=== PATIENT | male | born 1940 | race Caucasian/White ===

== ENCOUNTER 2024-07-30 10:10 | Emergency (ER) | payer MEDICARE, OTHER ==
[2024-07-30 11:47] LABS: HEMATOCRIT 38.9 % (39.0-49.0); HEMOGLOBIN 13.3 g/dL (13.1-16.8); MEAN CORPUSCULAR HEMOGLOBIN 31.4 pg (28.2-33.3); MEAN CORPUSCULAR HGB CONC 34.2 g/dL (31.7-36.0); MEAN CORPUSCULAR VOLUME 91.7 fL (84.0-98.0); RED BLOOD CELL COUNT 4.24 M/uL (4.33-5.41); WHITE BLOOD CELL COUNT,WBC 6.3 K/uL (4.0-10.2)
[2024-07-30 11:48] LABS: BASOPHILS ABSOLUTE AUTO 0.01 K/uL (0.00-0.20); BASOPHILS PERCENT AUTO 0.2 % (0.0-2.0); EOSINOPHILS ABSOLUTE AUTO 0.21 K/uL (0.00-0.50); EOSINOPHILS PERCENT AUTO 3.3 % (0.0-5.0); LYMPHOCYTES PERCENT AUTO 15.8 % (10.0-50.0); MONOCYTES ABSOLUTE AUTO 1.21 K/uL (0.00-1.00); MONOCYTES PERCENT AUTO 19.1 % (2.0-14.0); NEUTROPHILS PERCENT AUTO 61.6 % (45.0-80.0); PLATELET COUNT,PLT 167 K/uL (150-350); RED CELL DISTRIBUTION WIDTH 13.7 % (11.2-14.1)
[2024-07-30 11:59] LABS: LACTIC ACID 0.9 mmol/L (0.4-2.0)
[2024-07-30 12:03] LABS: ALBUMIN 3.4 g/dL (3.4-5.0); ANION GAP 10.9 meq/L (7-15); BILIRUBIN TOTAL 1.2 mg/dL (0.2-1.0); CALCIUM 9.5 mg/dL (8.5-10.1); CARBON DIOXIDE,CO2 24.1 mmol/L (21.0-32.0); CREATININE 1.47 mg/dL (0.51-1.17); EST CRCL DRUG DOSING (CG) 35.57 mL/min; MAGNESIUM 1.6 mg/dL (1.8-2.4); POTASSIUM,K 3.8 mmol/L (3.5-5.1); PROTEIN TOTAL,TP 8.4 g/dL (6.4-8.2)
[2024-07-30 12:15] LABS: CORONAVIRUS COVID-19 NAA NEGATIVE (NEGATIVE); INFLUENZA A NAA NEGATIVE (NEGATIVE); INFLUENZA B NAA NEGATIVE (NEGATIVE); RESPIRATORY SYNCYTIAL VIR NAA NEGATIVE (NEGATIVE)
[2024-07-30 12:16] LABS: PROTHROMBIN TIME 10.4 SEC (9.0-11.1)
== END 2024-07-30 12:55 | disposition home or self-care (01) ==
LOC: LL.ED 10:10
DX: J06.9 Acute upper respiratory infection, unspecified (principal); I10 Essential (primary) hypertension; J44.9 Chronic obstructive pulmonary disease, unspecified; K21.9 Gastro-esophageal reflux disease without esophagitis; Z79.899 Other long term (current) drug therapy; Z88.8 Allergy status to other drugs, medicaments and biological substances; Z88.6 Allergy status to analgesic agent
CPT/HCPCS: 0241U; 36415; 71046; 80053; 83605; 83735; 83880; 84484; 85025; 85610; 99283; 99285